=== PATIENT | male | born 2000 | race Caucasian/White ===

== ENCOUNTER 2022-10-09 01:30 | Emergency (ER) | payer SELFPAY ==
[~2022-10-09] VITALS: Ht 185.4 cm; Wt 113.4 kg
[2022-10-09 01:35] VITALS: BP 145/84
--- NOTE | 2022-10-09 01:41 | NUR ---
to bed 7
--- NOTE | 2022-10-09 01:44 | NUR ---
c/o intermittent 10/10 pain on right bottom teeth x 1 week. per pt, tooth feels loose on site of pain. denies pmhx. denies allergies.
--- NOTE | 2022-10-09 01:44 | NUR ---
DR URRUTIA AT BEDSIDE FOR EXAM
[2022-10-09] MEDS ORDERED: AMOX500C25 PO (01:50)
[2022-10-09] MEDS ORDERED: ACET-8905 PO (01:50)
[2022-10-09] MEDS ORDERED: NAPR-54 PO (01:50)
[2022-10-09 02:06] VITALS: BP 145/84
--- NOTE | 2022-10-09 02:07 | NUR ---
Patient discharged with v/s stable. Written and verbal after care instructions given and explained. New rx for norco, amoxicillin, and naprosyn. Patient verbalized understanding. Ambulatory with steady gait. All questions addressed prior to discharge. Advised to follow up with PMD.
== END 2022-10-09 02:06 | disposition home or self-care (01) ==
LOC: MED 01:30
DX: K08.89 Other specified disorders of teeth and supporting structures (principal); F17.210 Nicotine dependence, cigarettes, uncomplicated; Z79.899 Other long term (current) drug therapy
CPT/HCPCS: 99283